=== PATIENT | male | born 1940 | race Caucasian/White ===

== ENCOUNTER → 2019-08-17 | Outpatient (CLI) | payer MEDICARE, BC ==
[~2019-08-17] MED LIST: CARB1TAB46 PO
== END | disposition home or self-care (01) ==
LOC: CVU 14:50
PROVIDERS: ATTEND Internal Medicine Cardiovascular Disease
DX: I06.1 Rheumatic aortic insufficiency (principal); I65.23 Occlusion and stenosis of bilateral carotid arteries
CPT/HCPCS: 93306; 93880

== ENCOUNTER 2019-09-03 09:20 | Day surgery (SDC) | payer MEDICARE, BC ==
[~2019-09-03] VITALS: Ht 175.3 cm; Wt 75.0 kg
[2019-09-03] MEDS ORDERED: SODIUM CHLORIDE 0.9% 1,000 ML IV SCH (09:59)
[2019-09-03 10:02] VITALS: BP 146/94
[2019-09-03] MEDS ORDERED: OMEP20TA62 PO (10:13)
[2019-09-03] MEDS ORDERED: ASPI81TA45 PO (10:13)
[2019-09-03] MEDS ORDERED: ATOR-2 PO (10:13)
[2019-09-03] MEDS ORDERED: CARB1TAB2 PO (10:13)
[2019-09-03] MEDS ORDERED: BIVALIRUDIN 250 MG ONE (11:56)
[2019-09-03] MEDS ORDERED: FENTANYL PF 100 MCG/2ML ONE (11:56)
[2019-09-03] MEDS ORDERED: VERAPAMIL 2.5 MG/ML, 2ML ONE (11:56)
[2019-09-03] MEDS ORDERED: MIDAZOLAM 1 MG/ML, 5ML ONE (11:56)
[2019-09-03] MEDS ORDERED: HEPARIN 1,000 UNITS/ML, 10ML ONE (11:57)
[2019-09-03] MEDS ORDERED: LIDOCAINE 2%, 20ML ONE (11:57)
== END 2019-09-03 14:28 | disposition home or self-care (01) ==
LOC: CACL 09:20
PROVIDERS: ATTEND Internal Medicine Cardiovascular Disease
DX: I25.10 Atherosclerotic heart disease of native coronary artery without angina pectoris (principal); I35.0 Nonrheumatic aortic (valve) stenosis; E78.5 Hyperlipidemia, unspecified; G20 Parkinson's disease; I65.29 Occlusion and stenosis of unspecified carotid artery; Z79.82 Long term (current) use of aspirin
CPT/HCPCS: 93454; 99156; C1769; C1894; J1644; J2250; J3010; Q9967; J0583

== ENCOUNTER → 2019-09-08 | Outpatient (CLI) | payer MEDICARE, BC ==
[~2019-09-08] MED LIST changes: +ASPI81TA45 PO; +ATOR-2 PO; +CARB1TAB2 PO; +OMEP20TA62 PO; +VISIPAQUE 320 MG/ML, 150ML BOTTLE ONE
== END | disposition home or self-care (01) ==
LOC: RAD 11:51
PROVIDERS: ATTEND Internal Medicine Cardiovascular Disease
DX: K76.0 Fatty (change of) liver, not elsewhere classified (principal); K44.9 Diaphragmatic hernia without obstruction or gangrene; I25.10 Atherosclerotic heart disease of native coronary artery without angina pectoris; N40.0 Benign prostatic hyperplasia without lower urinary tract symptoms; I31.1 Chronic constrictive pericarditis; J98.4 Other disorders of lung; I70.0 Atherosclerosis of aorta; I51.7 Cardiomegaly
CPT/HCPCS: 71275; 74174; Q9967

== ENCOUNTER 2019-09-14 06:52 | Inpatient (IN) | payer MEDICARE, BC ==
[~2019-09-14] VITALS: Ht 175.3 cm; Wt 78.4 kg
[~2019-09-14 06:52] MED LIST changes: -VISIPAQUE 320 MG/ML, 150ML BOTTLE ONE
[2019-09-14] MEDS ORDERED: SODIUM CHLORIDE 0.9% 1,000 ML IV ONE (07:20)
[2019-09-14 07:24] VITALS: BP 132/89
[2019-09-14] MEDS ORDERED: ONDANSETRON 2MG/ML, 2ML IVPush PRN (07:30)
[2019-09-14] MEDS ORDERED: CHLORHEXIDINE 15 ML UDC MM PRN (07:30)
[2019-09-14] MEDS: PLEASE ENTER HEIGHT AND WEIGHT MC SCH ×3 (07:30→20:44)
[2019-09-14 07:56] LABS: BASOPHILS # (AUTO) 0.04 x10^3/uL (0-0.1); BASOPHILS % (AUTO) 1 % (0-1); EOSINOPHILS # (AUTO) 0.38 x10^3/uL (0-0.4); EOSINOPHILS % (AUTO) 7 % (1-7); LYMPHOCYTES # (AUTO) 2.21 x10^3/uL (1-3.4); LYMPHOCYTES % (AUTO) 41 % (22-44); MD NO; MEAN CORPUSCULAR HEMOGLOBIN 32.6 pg (27.5-34.5); MEAN CORPUSCULAR HGB CONC 33.7 g/dL (33.2-36.2); MEAN CORPUSCULAR VOLUME 96.7 fL (81-97); MEAN PLATELET VOLUME 8.4 fL (7.4-10.4); MONOCYTES % (AUTO) 9 % (2-9); NEUTROPHILS # (AUTO) 2.26 x10^3/uL (1.8-6.8); NEUTROPHILS % (AUTO) 42 % (42-75); PLATELET COUNT 172 x10^3/uL (130-400); RED BLOOD COUNT 4.83 x10^6/uL (4.38-5.82); RED CELL DISTRIBUTION WIDTH 12.8 % (9.4-14.8)
[2019-09-14 08:07] LABS: PROTHROMBIN TIME 10.6 Seconds (9.6-11.5)
[2019-09-14 08:08] LABS: ALANINE AMINOTRANSFERASE 9 U/L (12-78); ALBUMIN 3.3 g/dL (3.4-5.0); ANION GAP 7 mmol/L (5-15); CALCIUM 8.7 mg/dL (8.5-10.1); CHLORIDE 112 mmol/L (98-107); CREATININE 1.02 mg/dL (0.7-1.3)
[2019-09-14 08:12] LABS: ALKALINE PHOSPHATASE 97 U/L (45-117); BILIRUBIN,TOTAL 0.9 mg/dL (0.2-1.0); TOTAL PROTEIN 6.7 g/dL (6.4-8.2)
[2019-09-14] MEDS ORDERED: FENTANYL PF 250 MCG/5ML ONE (09:30)
[2019-09-14] MEDS ORDERED: CEFAZOLIN 1,000 MG ONE (09:31)
[2019-09-14] MEDS ORDERED: PROPOFOL 10 MG/ML, 20ML ONE (09:31)
[2019-09-14] MEDS ORDERED: SUCCINYLCHOLINE 20 MG/ML, 10ML ONE (10:11)
[2019-09-14] MEDS ORDERED: HEPARIN 1,000 UNITS/ML, 10ML ONE ×2 (10:11)
[2019-09-14] MEDS ORDERED: ROCURONIUM 10MG/ML,5ML ONE (10:11)
[2019-09-14] MEDS ORDERED: PROTAMINE SULFATE 10 MG/ML, 5ML ONE (10:29)
[2019-09-14] MEDS ORDERED: LABETALOL 20 MG/4 ML IVPush PRN (11:00)
[2019-09-14] MEDS ORDERED: ACETAMINOPHEN 325 MG TABLET PO PRN (11:00)
[2019-09-14] MEDS ORDERED: CLOPIDOGREL 300 MG TABLET PO ONE (11:00)
[2019-09-14] MEDS ORDERED: hydrALAzine 20 MG/ML, 1ML IVPush PRN (11:00)
[2019-09-14] MEDS ORDERED: CLOPIDOGREL 300 MG TABLET ONE (11:04)
[2019-09-14] MEDS ORDERED: ONDANSETRON 2MG/ML, 2ML ONE (11:39)
[2019-09-14] MEDS ORDERED: FAMOTIDINE 20 MG/2 ML ONE (11:48)
[2019-09-14] MEDS ORDERED: FAMOTIDINE 20 MG/2 ML IVPush ONE ×2 (12:00→13:30)
[2019-09-14 14:15] VITALS: BP 111/70
[2019-09-14] MEDS: CARBIDOPA/LEVODOPA 25 MG/100 MG TABLET PO SCH ×2 (16:57→20:43)
[2019-09-14 19:29] VITALS: BP 115/71
[2019-09-14] MEDS ORDERED: TEMAZEPAM 15 MG CAPSULE PO PRN (21:00)
[2019-09-14] MEDS ORDERED: ATORVASTATIN 80 MG TABLET PO SCH (21:00)
[2019-09-15 01:16] VITALS: BP 105/60
[2019-09-15 05:37] LABS: ANION GAP 5 mmol/L (5-15); CALCIUM 8.3 mg/dL (8.5-10.1); CHLORIDE 109 mmol/L (98-107)
[2019-09-15 05:38] LABS: BASOPHILS # (AUTO) 0.03 x10^3/uL (0-0.1); BASOPHILS % (AUTO) 0 % (0-1); EOSINOPHILS # (AUTO) 0.24 x10^3/uL (0-0.4); EOSINOPHILS % (AUTO) 3 % (1-7); LYMPHOCYTES # (AUTO) 1.39 x10^3/uL (1-3.4); LYMPHOCYTES % (AUTO) 20 % (22-44); MD NO; MEAN CORPUSCULAR HEMOGLOBIN 32.8 pg (27.5-34.5); MEAN CORPUSCULAR HGB CONC 34.3 g/dL (33.2-36.2); MEAN CORPUSCULAR VOLUME 95.8 fL (81-97); MEAN PLATELET VOLUME 8.8 fL (7.4-10.4); MONOCYTES # (AUTO) 0.74 x10^3/uL (0.2-0.8); MONOCYTES % (AUTO) 10 % (2-9); NEUTROPHILS # (AUTO) 4.74 x10^3/uL (1.8-6.8); NEUTROPHILS % (AUTO) 66 % (42-75); PLATELET COUNT 133 x10^3/uL (130-400)
[2019-09-15 08:25] VITALS: BP 129/80
[2019-09-15] MEDS ORDERED: CLOP75TA PO (08:58)
[2019-09-15] MEDS ORDERED: ACET325T26 PO (08:58)
[2019-09-15] MEDS ORDERED: CLOPIDOGREL 75 MG TABLET PO SCH (09:00)
[2019-09-15] MEDS ORDERED: ASPIRIN 81 MG TABLET EC PO SCH ×2 (09:00)
[2019-09-15] MEDS ORDERED: TEMPLATE NON-FORMULARY MED. (Omeprazole Magnesium** (Prilosec Otc**) 20 MG) PO SCH (09:00)
[2019-09-15] MEDS: CARBIDOPA/LEVODOPA 25 MG/100 MG TABLET PO SCH (09:16)
== END 2019-09-15 10:14 | disposition home or self-care (01) | DRG 266 ==
LOC: ORIP 06:52 → 5SO 12:44
PROVIDERS: ADMIT Internal Medicine Cardiovascular Disease; ATTEND Internal Medicine Cardiovascular Disease
PROC: B244ZZ4 Ultrasonography of Right Heart, Transesophageal (ICD-10-PCS; 2019-09-14)
PROC: 02RF38Z Replacement of Aortic Valve with Zooplastic Tissue, Percutaneous Approach (ICD-10-PCS; principal; 2019-09-14 09:40)
DX: I35.0 Nonrheumatic aortic (valve) stenosis (principal); Z00.6 Encounter for examination for normal comparison and control in clinical research program; I50.33 Acute on chronic diastolic (congestive) heart failure; I25.10 Atherosclerotic heart disease of native coronary artery without angina pectoris; G20 Parkinson's disease; I11.0 Hypertensive heart disease with heart failure; E78.5 Hyperlipidemia, unspecified; Z85.46 Personal history of malignant neoplasm of prostate; Z98.61 Coronary angioplasty status
CPT/HCPCS: 33361; 36415; 80048; 80053; 83880; 85025; 85347; 85610; 85730; 86850; 86900; 86923; 92986; 93005; 93306; 93312; 93321; 93325; 93355; 93356; C1760; C1769; C1894; G0378; J0690; J1644; J2405; J2704; J2720; J3010; J0330; J3490; Q9967

== ENCOUNTER → 2019-10-15 | Outpatient (CLI) | payer MEDICARE, BC ==
[~2019-10-15] MED LIST changes: +ACET325T26 PO; +CLOP75TA PO
== END | disposition home or self-care (01) ==
LOC: CVU 09:43
PROVIDERS: ATTEND Internal Medicine Cardiovascular Disease
DX: I35.0 Nonrheumatic aortic (valve) stenosis (principal); I65.29 Occlusion and stenosis of unspecified carotid artery; R06.02 Shortness of breath
CPT/HCPCS: 93306

== ENCOUNTER → 2020-07-11 | Outpatient (CLI) | payer MEDICARE, BC | END | disposition home or self-care (01) | LOC: CFH 15:51 | PROVIDERS: ATTEND Internal Medicine Cardiovascular Disease | DX: I08.2 Rheumatic disorders of both aortic and tricuspid valves (principal) | CPT/HCPCS: 93306 ==